=== PATIENT | female | born 1990 | race Caucasian/White ===

== ENCOUNTER 2019-10-31 11:15 | Emergency (ER) | payer SELFPAY ==
[2019-10-31 11:16] VITALS: BP 121/76; PULSE 70; RESP 18; TEMP 36.8; O2SAT 100; BMI 38.2
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
[2019-10-31] MEDS: Acetaminophen 325 MG Tablet 650 MG PO (13:22)
[2019-10-31 13:23] VITALS: BP 109/79; PULSE 66; RESP 16; O2SAT 95
== END 2019-10-31 13:27 | disposition home or self-care (01) ==
PROVIDERS: Emergency Provider Emergency Medicine
DX: S09.90XA Unspecified injury of head, initial encounter (principal); S16.1XXA Strain of muscle, fascia and tendon at neck level, initial encounter; S30.1XXA Contusion of abdominal wall, initial encounter; V43.52XA Car driver injured in collision with other type car in traffic accident, initial encounter; Y92.410 Unspecified street and highway as the place of occurrence of the external cause
CPT/HCPCS: 72040; 99285; A4216